=== PATIENT | female | born 1995 | race Caucasian/White ===

== ENCOUNTER 2016-10-18 14:53 | Emergency (ER) | payer OTHER ==
[2016-10-18 14:58] VITALS: BP 153/63; PULSE 96; TEMP 97.9; BMI 28.7
--- NOTE | 2016-10-18 15:06 | PDOC ---
History of Present Illness - General Chief Complaint: Allergic Reaction Stated Complaint: SKIN RASH Time Seen by Provider: 10/18/16 15:05 History Source: Patient Exam Limitations: No Limitations - History of Present Illness Initial Comments: 10/18/16 15:33 CHIEF COMPLAINT: Rash 2 days HISTORY OF PRESENT ILLNESS: Pt.is a 20 year old female with no significant medical history here today complaining of worsening pruritic rash that started 2 days ago under her b/l breast and medial forearm, to her back, posterior calved, anterior and posterior neck and buttocks. Patient reports that she started to take Flagyl 500 mg twice a day and Zithromycin 1 gm 3 days ago. She has taken both medications before without any reaction. Patient denies any difficulty swallowing or breathing. Patient does not have any facial swelling noticeable. Pt. denies any new cosmetics, lotions, clothing or body piercing or tattoes. 10/18/16 15:54 10/18/16 23:06 Timing/Duration: getting worse (last 2 days ) Severity: moderate Associated Symptoms: reports: rash (medial forearm & thighs, posterior calves, under b/l breasts, back, b/l buttock, neck anterior/posterior non confluent pruritic rash ) Past History - Past Medical History Allergies/Adverse Reactions: Allergies Allergy/AdvReac Type Severity Reaction Status Date / Time No Known Allergies Allergy Verified 10/18/16 14:55 Home Medications: Ambulatory Orders Azithromycin 500 mg PO ASDIR 10/18/16 Metronidazole 500 mg PO ASDIR 10/18/16 Asthma: No Cancer: No Cardiac Disorders: No Diabetes: No HTN: No Seizures: No Thyroid Disease: No Other medical history: none - Reproductive History (#): 2 Para: 1 Therapeutic (s) & number: No Spontaneous : 0 - Immunization History Immunization Up to Date: Yes - Psycho/Social/Smoking Cessation Hx Anxiety: Yes Suicidal Ideation: No Smoking Status: Yes Smoking History: Current every day smoker Have you smoked in the past 12 months: Yes Number of Cigarettes Smoked Daily: 5 If you are a former smoker, when did you quit?: 11/05/11 Information on smoking cessation initiated: Yes 'Breaking Loose' booklet given: 10/18/16 Hx Alcohol Use: No Drug/Substance Use Hx: No Substance Use Type: None Hx Substance Use Treatment: No Review of Systems - Review of Systems Able to Perform ROS?: Yes Constitutional: No: Symptoms Reported HEENTM: No: Symptoms Reported Respiratory: No: Symptoms reported Cardiac (ROS): No: Symptoms Reported ABD/GI: No: Symptoms Reported : No: Symptoms Reported Musculoskeletal: No: Symptoms Reported Integumentary: Yes: Pruritus (medial forearm, thighs, posterior calves, under b/ l breasts, back, buttock anterior /posteriro rash non confluent), Rash Neurological: No: Symptoms reported *Physical Exam - Vital Signs Last Vital Signs Temp Pulse Resp BP Pulse Ox 97.9 F 96 H 18 153/63 100 10/18/16 14:55 10/18/16 14:55 10/18/16 14:55 10/18/16 14:55 10/18/16 14:55 - Physical Exam General Appearance: Yes: Appropriately Dressed HEENT: positive: Pharyngeal Erythema, Tonsillar Erythema (with no uvular deviation ). negative: Tonsillar Exudate Neck: positive: Lymphadenopathy (L). negative: Lymphadenopathy (R) Respiratory/Chest: positive: Lungs Clear, Normal Breath Sounds. negative: Chest Tender, Respiratory Distress Cardiovascular: positive: Regular Rhythm, Regular Rate, S1, S2 Integumentary: positive: Rash (macular, medial forearms/proximal thighs, under b /l breasts, back, b/l buttock, anterior/posterior neck non confluent, few are minimally raised) Neurologic: positive: Alert, Normal Response, Responsive Medical Decision Making - Medical Decision Making 10/18/16 15:39 Pt.is a 20 year old female with no significant medical history here today complaining of worsening pruritic rash that started 2 days ago on her b/l breast and medial forearm, to her back, posterior calved, anterior and posterior neck and buttocks. Patient reports that she started to take Flagyl 500 mg twice a day and Zithromycin 1 gm 3 days ago. She has taken both medications before without any reaction. Patient denies any difficulty swallowing or breathing. Patient does not have any facial swelling noticeable. Pruritic rash pharyngitis PLAN: throat C & S rapid negative pt.advised to stop flagyl take benadryl as directed for itchiness follow up with rim technician 10/18/16 15:56 10/18/16 16:02 *DC/Admit/Observation/Transfer Diagnosis at time of Disposition: Rash, skin - Discharge Dispostion Disposition: HOME Condition at time of disposition: Stable - Patient Instructions Additional Instructions: Stop Metronidazole and follow up with [facility] Follow up with rim technician Dr. Segura [phone] Return to emergency room if any difficulty breathing or swallowing or any facial swelling or any new symptoms Take Benadryl as needed as directed by print journalist for itchiness Patient voiced understanding of discharge instructions and all questions were answered - Post Discharge Activity Work/School Note: Back to Work
== END 2016-10-18 16:06 | disposition home or self-care (01) ==
LOC: JERFT 14:53
DX: R21 Rash and other nonspecific skin eruption (principal)
CPT/HCPCS: 87070; 87430; 99281-25

== ENCOUNTER 2016-10-21 04:37 | Emergency (ER) | payer OTHER ==
--- NOTE | 2016-10-21 05:29 | PDOC ---
History of Present Illness - General History Source: Patient Exam Limitations: No Limitations - History of Present Illness Initial Comments: 10/21/16 05:57 The patient is a 20 year old female with no significant past medical history who presents to the ED with a progressively worsening rash for 4 days. The patient was seen in the ED 2 days ago and discharged with benadryl. She reports the rash is throughout her upper and lower extremities, back, and abdomen. She states the rash has now developed to her breast and her rash is now itchy. Patient reports the rash is so itchy, it hurts. Denies recent contact with plants. Denies fevers or chills. Denies chest pain or shortness of breath. Denies nausea , vomiting, or diarrhea. Denies any other symptoms. Social hx: The patient lives at home with her daughter and 2 dogs. She reports she is the only person at home with a rash. <Curt Rodriguez - Last Filed: 10/21/16 05:57> <Estela Enciso - Last Filed: 10/24/16 22:40> - General Stated Complaint: RASH Time Seen by Provider: 10/21/16 04:46 Past History <Curt Rodriguez - Last Filed: 10/21/16 05:57> - Past Medical History Asthma: No Cancer: No Cardiac Disorders: No Diabetes: No HTN: No Seizures: No Thyroid Disease: No - Reproductive History (#): 2 Para: 1 Therapeutic (s) & number: No Spontaneous : 0 - Immunization History Immunization Up to Date: Yes - Psycho/Social/Smoking Cessation Hx Anxiety: Yes Suicidal Ideation: No Smoking Status: Yes Smoking History: Current every day smoker Have you smoked in the past 12 months: Yes Number of Cigarettes Smoked Daily: 5 If you are a former smoker, when did you quit?: 11/05/11 'Breaking Loose' booklet given: 10/18/16 Hx Alcohol Use: No Drug/Substance Use Hx: No Substance Use Type: None Hx Substance Use Treatment: No <Estela Enciso - Last Filed: 10/24/16 22:40> - Past Medical History Allergies/Adverse Reactions: Allergies Allergy/AdvReac Type Severity Reaction Status Date / Time No Known Allergies Allergy Verified 10/21/16 05:59 Home Medications: Ambulatory Orders Azithromycin 500 mg PO ASDIR 10/18/16 Metronidazole 500 mg PO ASDIR 10/18/16 Calamine 8% Topical Lotion - 1 applic TP BID #1 bottle 10/21/16 Dicloxacillin Sodium 250 mg PO BID #14 capsule 10/21/16 Permethrin 5% Topical Cream [Elimite -] 1 applic TP ONCE #1 bottle 10/21/16 Review of Systems - Review of Systems Able to Perform ROS?: Yes Comments:: 10/21/16 05:57 CONSTITUTIONAL: Absent: fever, chills, diaphoresis, generalized weakness, malaise, loss of appetite HEENT: Absent: rhinorrhea, nasal congestion, throat pain, throat swelling, difficulty swallowing, mouth swelling, ear pain, eye pain, visual Changes CARDIOVASCULAR: Absent: chest pain, syncope, palpitations, irregular heart rate, lightheadedness , peripheral edema RESPIRATORY: Absent: cough, shortness of breath, dyspnea with exertion, orthopnea, wheezing, stridor, hemoptysis GASTROINTESTINAL: Absent: abdominal pain, abdominal distension, nausea, vomiting, diarrhea, constipation, melena, hematochezia GENITOURINARY: Absent: dysuria, frequency, urgency, hesitancy, hematuria, flank pain, genital pain MUSCULOSKELETAL: Absent: myalgia, arthralgia, joint swelling SKIN: + rash, itching Absent: pallor HEMATOLOGIC/IMMUNOLOGIC: Absent: easy bleeding, easy bruising, lymphadenopathy, frequent infections ENDOCRINE: Absent: unexplained weight gain, unexplained weight loss, heat intolerance, cold intolerance NEUROLOGIC: Absent: headache, focal weakness or paresthesias, dizziness, unsteady gait, seizure, mental status changes, bladder or bowel incontinence PSYCHIATRIC: Absent: anxiety, depression, suicidal or homicidal ideation, hallucinations. All Other Systems: Reviewed and Negative <Curt Rodriguez - Last Filed: 10/21/16 05:57> *Physical Exam - Physical Exam Comments: 10/21/16 05:57 GENERAL: Well developed, well nourished. Awake and alert. No acute distress. HEENT: Normocephalic, atraumatic. PERRLA, EOMI. No conjunctival pallor. Sclera are non- icteric. Moist mucous membranes. Oropharynx is clear. NECK: Supple. Full ROM. No JVD. Carotid pulses 2+ and symmetric, without bruits. No thyromegaly. NCo lymphadenopathy. CARDIOVASCULAR: Regular rate and rhythm. No murmurs, rubs, or gallops. Distal pulses are 2+ and symmetric. PULMONARY: No evidence of respiratory distress. Lungs clear to auscultation bilaterally. No wheezing, rales or rhonchi. ABDOMINAL: Soft. Non-tender. Non-distended. No rebound or guarding. No organomegaly. Normoactive bowel sounds. MUSCULOSKELETAL Normal range of motion at all joints. No bony deformities or tenderness. No CVA tenderness. EXTREMITIES: No cyanosis. No clubbing. No edema. No calf tenderness. SKIN: + macular rash with pinpoint papules throughout extremities, abdomen, chest , back. Warm and dry. Normal capillary refill. No jaundice. NEUROLOGICAL: Alert, awake, appropriate. Cranial nerves 2-12 intact. No deficits to light touch and temperature in face, upper extremities and lower extremities. No motor deficits in the in face, upper extremities and lower extremities. Normoreflexic in the upper and lower extremities. Normal speech. Toes are down- going bilaterally. Gait is normal without ataxia. PSYCHIATRIC: Cooperative. Good eye contact. Appropriate mood and affect. <Curt Rodriguez - Last Filed: 10/21/16 05:57> Medical Decision Making - Medical Decision Making 10/24/16 22:38 Pt comes with a nonspecific itchy rash that is spreading on her trunk. There could be a bacterial component to it, so I will teat with diclox; also there bould be a body flea or insect/lice component, as she lives in close quarters with her 2 dogs. I will gve permethrin. Calamine ordered for relief of itching. Pt has appointment with dermatology in the AM <Estela Enciso - Last Filed: 10/24/16 22:40> *DC/Admit/Observation/Transfer - Attestations Scribe Attestion: 10/21/16 05:58 Documentation prepared by Curt Rodriguez, acting as bilingual medical assistant for Estela Enciso MD <Curt Rodriguez - Last Filed: 10/21/16 05:57> - Discharge Dispostion Admit: No <Estela Enciso - Last Filed: 10/24/16 22:40> Diagnosis at time of Disposition: Rash, skin, Pruritic rash - Discharge Dispostion Disposition: HOME Condition at time of disposition: Stable - Prescriptions Prescriptions: Calamine 8% Topical Lotion - 1 applic TP BID #1 bottle Dicloxacillin Sodium 250 mg PO BID #14 capsule Permethrin 5% Topical Cream [Elimite -] 1 applic TP ONCE #1 bottle - Patient Instructions Printed Discharge Instructions: DI for Rash
[2016-10-21] MEDS ORDERED: CALAMINE 8% TOPICAL LOTION 177 ML BOTTLE TP ONE (05:57)
[2016-10-21 06:11] VITALS: BP 110/71; PULSE 74; TEMP 98.3; BMI 24.2
== END 2016-10-21 06:12 | disposition home or self-care (01) ==
LOC: JER 04:37
DX: R21 Rash and other nonspecific skin eruption (principal)
CPT/HCPCS: 99281-25

== ENCOUNTER 2016-12-11 01:48 | Emergency (ER) | payer OTHER ==
[2016-12-11 02:29] VITALS: BP 121/79; PULSE 80; TEMP 97.9; BMI 24.2
[2016-12-11] MEDS ORDERED: IBUPROFEN 600 MG TABLET (FP) PO STA (02:36)
--- NOTE | 2016-12-11 02:36 | PDOC ---
History of Present Illness - General History Source: Patient Exam Limitations: No Limitations - History of Present Illness Initial Comments: 12/11/16 02:56 The patient is a 21-year-old female, with no significant past medical history, who presents to the ED with one day of head and neck pain. The pt was at work putting dishes in section [employer] when a metal rack fell and hit the left-side of her neck, causing her to hit her head against a counter. Pt went to another hospital and left before she was seen because the wait was too long. She reports that she has been taking tylenol for pain. On exam, the patient reports experiencing dizziness. The patient denies having any other injuries or symptoms. Allergies: None <Evelia Og - Last Filed: 12/11/16 02:56> - General History Source: Patient <Eduardo Gold - Last Filed: 12/11/16 04:02> - General Chief Complaint: Injury Stated Complaint: FACE/NECK INJURY (WORK) Time Seen by Provider: 12/11/16 02:32 Past History <Evelia Og - Last Filed: 12/11/16 02:56> - Past Medical History Asthma: No Cancer: No Cardiac Disorders: No Diabetes: No HTN: No Seizures: No Thyroid Disease: No - Reproductive History (#): 2 Para: 1 Therapeutic (s) & number: No Spontaneous : 0 - Immunization History Immunization Up to Date: Yes - Psycho/Social/Smoking Cessation Hx Anxiety: Yes Suicidal Ideation: No Smoking Status: Yes Smoking History: Current every day smoker Have you smoked in the past 12 months: Yes Number of Cigarettes Smoked Daily: 5 If you are a former smoker, when did you quit?: 11/05/11 Information on smoking cessation initiated: No 'Breaking Loose' booklet given: 10/18/16 Hx Alcohol Use: No Drug/Substance Use Hx: No Substance Use Type: None Hx Substance Use Treatment: No <Eduardo Gold - Last Filed: 12/11/16 04:02> - Past Medical History Allergies/Adverse Reactions: Allergies Allergy/AdvReac Type Severity Reaction Status Date / Time No Known Allergies Allergy Verified 12/11/16 02:20 Home Medications: Ambulatory Orders Ibuprofen [Motrin] 600 mg PO TID #30 tablet 12/11/16 Methocarbamol [Robaxin -] 500 mg PO TID #30 tablet 12/11/16 Review of Systems - Review of Systems Able to Perform ROS?: Yes Comments:: 12/11/16 02:57 CONSTITUTIONAL: Absent: fever, chills, diaphoresis, generalized weakness, malaise, loss of appetite HEENT: Absent: rhinorrhea, nasal congestion, throat pain, throat swelling, difficulty swallowing, mouth swelling, ear pain, eye pain, visual Changes CARDIOVASCULAR: Absent: chest pain, syncope, palpitations, irregular heart rate, lightheadedness , peripheral edema RESPIRATORY: Absent: cough, shortness of breath, dyspnea with exertion, orthopnea, wheezing, stridor, hemoptysis GASTROINTESTINAL: Absent: abdominal pain, abdominal distension, nausea, vomiting, diarrhea, constipation, melena, hematochezia GENITOURINARY: Absent: dysuria, frequency, urgency, hesitancy, hematuria, flank pain, genital pain MUSCULOSKELETAL: Present: neck pain Absent: arthralgia, joint swelling SKIN: Absent: rash, itching, pallor HEMATOLOGIC/IMMUNOLOGIC: Absent: easy bleeding, easy bruising, lymphadenopathy, frequent infections ENDOCRINE: Absent: unexplained weight gain, unexplained weight loss, heat intolerance, cold intolerance NEUROLOGIC: Present: headache, dizziness Absent: focal weakness or paresthesias, unsteady gait, seizure, mental status changes, bladder or bowel incontinence PSYCHIATRIC: Absent: anxiety, depression, suicidal or homicidal ideation, hallucinations. <Evelia Og - Last Filed: 12/11/16 02:56> *Physical Exam - Vital Signs Last Vital Signs Temp Pulse Resp BP Pulse Ox 97.9 F 80 16 121/79 99 12/11/16 02:20 12/11/16 02:20 12/11/16 02:20 12/11/16 02:20 12/11/16 02:20 - Physical Exam Comments: 12/11/16 02:58 GENERAL: Well developed, well nourished. Awake and alert. No acute distress. HEENT: Normocephalic, atraumatic. PERRLA, EOMI. No conjunctival pallor. Sclera are non- icteric. Moist mucous membranes. Oropharynx is clear. No raccoon or battlesigns. No obvious ecchymosis. No hemotympanum. NECK: Supple. No JVD. Carotid pulses 2+ and symmetric, without bruits. No thyromegaly. No lymphadenopathy. CARDIOVASCULAR: Regular rate and rhythm. No murmurs, rubs, or gallops. Distal pulses are 2+ and symmetric. PULMONARY: No evidence of respiratory distress. Lungs clear to auscultation bilaterally. No wheezing, rales or rhonchi. ABDOMINAL: Soft. Non-tender. Non-distended. No rebound or guarding. No organomegaly. Normoactive bowel sounds. MUSCULOSKELETAL Normal range of motion at all joints. No bony deformities or tenderness. No CVA tenderness. EXTREMITIES: No cyanosis. No clubbing. No edema. No calf tenderness. SKIN: Warm and dry. Normal capillary refill. No rashes. No jaundice. NEUROLOGICAL: Alert, awake, appropriate. Cranial nerves 2-12 intact. PSYCHIATRIC: Cooperative. Good eye contact. Appropriate mood and affect. <Evelia Og - Last Filed: 12/11/16 02:56> - Vital Signs Last Vital Signs Temp Pulse Resp BP Pulse Ox 97.9 F 80 16 121/79 99 12/11/16 02:20 12/11/16 02:20 12/11/16 02:20 12/11/16 02:20 12/11/16 02:20 <Eduardo Gold - Last Filed: 12/11/16 04:02> ED Treatment Course - Medications Given in the ED: ED Medications Discontinued Medications Generic Name Dose Route Start Last Admin Trade Name Freq PRN Reason Stop Dose Admin Ibuprofen 600 mg 12/11/16 02:36 12/11/16 02:42 Motrin - PO 12/11/16 02:37 600 mg ONCE STA Administration <Evelia Og - Last Filed: 12/11/16 02:56> Medical Decision Making - Medical Decision Making 12/11/16 03:59 Dr. Gold: The scribe's documentation has been prepared under my direction and personally reviewed by me in its entirery. I confirm that the note above accurately reflects all work, treatment, procedures, and medical decision making performed by me. <Eduardo Gold - Last Filed: 12/11/16 04:02> *DC/Admit/Observation/Transfer - Attestations Scribe Attestion: 12/11/16 03:00 Documentation prepared by Evelia Og, acting as er medical technician for Eduardo Gold MD. <Evelia Og - Last Filed: 12/11/16 02:56> - Discharge Dispostion Admit: No <Eduardo Gold - Last Filed: 12/11/16 04:02> Diagnosis at time of Disposition: Closed head injury Qualifiers: Encounter type: initial encounter Qualified Code(s): S09.90XA - Unspecified injury of head, initial encounter - Discharge Dispostion Disposition: HOME Condition at time of disposition: Stable - Patient Instructions Printed Discharge Instructions: DI for Closed Head Injury - Post Discharge Activity Work/School Note: Back to Work
[2016-12-11] MEDS ORDERED: IBUPROFEN 600 MG TABLET (FP) PO ONE (02:41)
[2016-12-11] MEDS ORDERED: METHOCARBAMOL 500 MG TABLET PO ONE (04:05)
[2016-12-11] MEDS ORDERED: METHOCARBAMOL 500 MG TABLET ONE (04:07)
== END 2016-12-11 04:10 | disposition home or self-care (01) ==
LOC: JER 01:48
DX: S09.8XXA Other specified injuries of head, initial encounter (principal); W22.8XXA Striking against or struck by other objects, initial encounter; Y93.G1 Activity, food preparation and clean up; Y92.59 Other trade areas as the place of occurrence of the external cause; Y99.0 Civilian activity done for income or pay
CPT/HCPCS: 70450-TC; 72125-TC; 84703; 99282-25

== ENCOUNTER 2017-05-05 16:57 | Emergency (ER) | payer OTHER ==
[2017-05-05 17:03] VITALS: BMI 22.6
--- NOTE | 2017-05-05 17:05 | PDOC ---
Rapid Medical Evaluation Time Seen by Provider: 05/05/17 17:00 Medical Evaluation: Allergies Allergy/AdvReac Type Severity Reaction Status Date / Time No Known Allergies Allergy Verified 05/05/17 17:00 05/05/17 17:00 The patient presents with a chief complaint of: Nausea and vomiting for 3 weeks. Pt. states that she vomits after every time she eats. Last bowel movement yesterday. Has not seen a primary care doctor I have performed a brief in-person evaluation of this patient; Pertinent physical exam findings: LUQ tenderness, epigastric tenderness I have ordered the following: CBC, CMP, Lipase, UA, UC, Upreg The patient will proceed to the ED for further evaluation.
[2017-05-05 17:28] LABS: BASOPHIL 0.3 % (0-2.0); MCHC 33.5 g/dl (32.0-36.0); MEAN CELL VOLUME 86.6 fl (80-96); MEAN PLT VOLUME 8.4 fl (7.5-11.1); NEUTROPHILS 76.4 % (42.8-82.8); PLATELET COUNT 336 K/MM3 (134-434); RDW 13.3 % (11.6-15.6); WHITE BLOOD COUNT 15.5 K/mm3 (4.0-10.0)
[2017-05-05 17:33] LABS: URINE APPEARANCE CLOUDY; URINE BILIRUBIN NEGATIVE (NEGATIVE); URINE BLOOD NEGATIVE (NEGATIVE); URINE COLOR YELLOW; URINE GLUCOSE (UA) NEGATIVE (NEGATIVE); URINE KETONE NEGATIVE (NEGATIVE); URINE LEUK ESTERASE NEGATIVE (NEGATIVE); URINE NITRITE NEGATIVE (NEGATIVE); URINE PROTEIN NEGATIVE (NEGATIVE); URINE UROBILINOGEN NEGATIVE mg/dL (0.2-1.0)
[2017-05-05 17:53] LABS: ALBUMIN 4.2 g/dl (3.4-5.0); ALK PHOS 100 U/L (45-117); ANION GAP 6 (8-16); BILIRUBIN,TOTAL 0.3 mg/dL (0.2-1.0); CALCIUM 9.4 mg/dL (8.5-10.1); CO2 28 mmol/L (21-32); CREATININE 0.8 mg/dL (0.55-1.02); GLUCOSE,RANDOM 89 mg/dL (74-106); SGOT/AST 14 U/L (15-37); SGPT/ALT 21 U/L (12-78); TOT PROT 8.7 g/dl (6.4-8.2)
--- NOTE | 2017-05-05 19:10 | PDOC ---
History of Present Illness - General Chief Complaint: Pain, Acute Stated Complaint: NAUSEA/VOMITING Time Seen by Provider: 05/05/17 17:00 - History of Present Illness Initial Comments: 05/05/17 19:10 21 yo F with no significant pmh who presents with abdominal pain. Patient reports LUQ sharp, shooting, abdominal pain lasting for seconds then resolving. Pain radiates from LUQ to RLQ. Described as "electrical sensation." Also endorses 3 weeks of N/V, exacerbated with PO intake. No identifiable trigger. States that she is only able to drink water and smooothies. Last bowel movement today with no BRBPR. Denies fevers/chills, diarrhea, hematemesis, constipation, dysuria, hematuria, irregular vaginal bleeding/discharge, flank pain, chest pain , SOB. Endorses daily marijuanna use for the past 10 years. 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 Past History - Past Medical History Allergies/Adverse Reactions: Allergies Allergy/AdvReac Type Severity Reaction Status Date / Time No Known Allergies Allergy Verified 05/05/17 17:00 Home Medications: Ambulatory Orders Ibuprofen [Motrin] 600 mg PO TID #30 tablet 12/11/16 Methocarbamol [Robaxin -] 500 mg PO TID #30 tablet 12/11/16 Asthma: No Cancer: No Cardiac Disorders: No COPD: No Diabetes: No HTN: No Seizures: No Thyroid Disease: No - Reproductive History (#): 2 Para: 1 Therapeutic (s) & number: No Spontaneous : 0 - Immunization History Immunization Up to Date: Yes - Suicide/Smoking/Psychosocial Hx Smoking Status: Yes Smoking History: Never smoked Have you smoked in the past 12 months: Yes Number of Cigarettes Smoked Daily: 5 If you are a former smoker, when did you quit?: 11/05/11 Information on smoking cessation initiated: Yes 'Breaking Loose' booklet given: 05/05/17 Hx Alcohol Use: No Drug/Substance Use Hx: No Substance Use Type: None Hx Substance Use Treatment: No Review of Systems - Review of Systems Comments:: 05/05/17 19:09 GENERAL/CONSTITUTIONAL: No fever or chills. No weakness. HEAD, EYES, EARS, NOSE AND THROAT: No change in vision. No ear pain or discharge. No sore throat.- CARDIOVASCULAR: No chest pain or shortness of breath RESPIRATORY: No cough, wheezing, or hemoptysis. GASTROINTESTINAL: + abdominal pain, nausea, and vomiting. No diarrhea or constipation. GENITOURINARY: No dysuria, frequency, or change in urination. MUSCULOSKELETAL: No joint or muscle swelling or pain. No neck or back pain. SKIN: No rash NEUROLOGIC: No headache, vertigo, loss of consciousness, or change in strength/ sensation. ENDOCRINE: No increased thirst. No abnormal weight change HEMATOLOGIC/LYMPHATIC: No anemia, easy bleeding, or history of blood clots. ALLERGIC/IMMUNOLOGIC: No hives or skin allergy. = *Physical Exam - Vital Signs Last Vital Signs Temp Pulse Resp BP Pulse Ox 97.3 F L 98 H 18 131/86 100 05/05/17 17:01 05/05/17 17:01 05/05/17 17:01 05/05/17 17:01 05/05/17 17:01 - Physical Exam Comments: 05/05/17 19:09 GENERAL: Awake, alert, and fully oriented, in no acute distress HEAD: No signs of trauma, normocephalic, atraumatic EYES: PERRLA, EOMI, sclera anicteric, conjunctiva clear ENT: Hearing grossly normal, nares patent, oropharynx clear without exudates. Moist mucosa NECK: Normal ROM, supple, no lymphadenopathy, JVD, or masses LUNGS: No distress, speaks full sentences, clear to auscultation bilaterally HEART: Regular rate and rhythm, normal S1 and S2, no murmurs, rubs or gallops, peripheral pulses normal and equal bilaterally. ABDOMEN: Soft, LUQ > LLQ ttp. Nontender, normoactive bowel sounds. No guarding , no rebound. No masses. Neg CVA ttp. Neg suprapubic ttp. Neg vang sign, or mcburney ttp. EXTREMITIES : Normal inspection, Normal range of motion, no edema. No clubbing or cyanosis. SKIN: Warm, Dry, normal turgor, no rashes or lesions noted. ED Treatment Course - LABORATORY CBC & Chemistry Diagram: 05/05/17 17:20 05/05/17 17:20 - ADDITIONAL ORDERS Additional order review: Laboratory Results 05/05/17 05/05/17 05/05/17 17:20 17:20 17:20 Sodium 141 Potassium 4.0 Chloride 107 Carbon Dioxide 28 Anion Gap 6 L BUN 15 Creatinine 0.8 D Creat Clearance w eGFR > 60 Random Glucose 89 Calcium 9.4 Total Bilirubin 0.3 D AST 14 L ALT 21 Alkaline Phosphatase 100 D Total Protein 8.7 H Albumin 4.2 Lipase 125 Urine Color Yellow Urine Appearance Cloudy Urine pH 5.0 Ur Specific [place] 1.026 Urine Protein Negative Urine Glucose (UA) Negative Urine Ketones Negative Urine Blood Negative Urine Nitrite Negative Urine Bilirubin Negative Urine Urobilinogen Negative Urine HCG, Qual Negative 05/05/17 17:20 RBC 5.08 MCV 86.6 MCHC 33.5 RDW 13.3 MPV 8.4 Neutrophils % 76.4 Lymphocytes % 15.0 D Monocytes % 7.3 Eosinophils % 1.0 D Basophils % 0.3 Medical Decision Making - Medical Decision Making 05/05/17 20:40 21 yo F with no significant pmh who presents w/ LUQ sharp, shooting, intermittent abdominal pain and 3 weeks of non biliary, non bloody, emesis, exacerbated with PO intake. Last bowel movement today with no BRBPR. Denies fevers/chills, chest pain, diarrhea, constipation, dysuria, hematuria, dysmennorhea, vaginal discharge, flank pain, chest pain, SOB. Endorses daily marijuanna use for the past 10 years. 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 Physical exam with LUQ/LLQ ttp. Patient arrived from [facility] with unremarkable laboratory evaluation. Pain not consistent with gallbladder vs pancreatic etiology. Possible THC induced cyclical vomitting vs. viral gastritis. ED Course: 05/05/17 20:44 CMP: Unremarkable Lipase: Neg WBC: 15.5 BHCG: neg 05/05/17 20:45 UA: Neg CT AP IV CON: Slighlt distended bowel loops suggesting diarrheal illness. 05/05/17 20:48 Zofran, Toradol, NS Patient stable for discharge and advised to f/u in outpt. clinic with return precautions. *DC/Admit/Observation/Transfer Diagnosis at time of Disposition: Abdominal pain with vomiting - Discharge Dispostion Disposition: HOME Condition at time of disposition: Stable Admit: No - Referrals - Patient Instructions Printed Discharge Instructions: DI for Nausea -- Adult Additional Instructions: Please return to the emergency department with any new or worsening symptoms or concerns. Please follow up with outpatient GI clinic ) - Post Discharge Activity - Attestations Physician Attestion: 05/05/17 21:39 I attest to the information provided in this note.
[2017-05-05] MEDS ORDERED: ONDANSETRON 4 MG TABLET PO ONE (19:31)
[2017-05-05] MEDS ORDERED: ONDANSETRON 4 MG/2 ML VIAL ONE (19:54)
[2017-05-05] MEDS ORDERED: ONDANSETRON 4 MG/2 ML VIAL IVPB ONE (19:54)
--- NOTE | 2017-05-05 19:55 | PDOC ---
Attending Attestation - HPI HPI: 05/05/17 21:48 21 F with no significant past medical history, who presents to the emergency department with abdominal pain, nausea, and vomiting for 3 weeks. She states she has had abdominal problems for approximately 3 years. She reports she vomits after eating, especially solid foods. She states it feels like her abdomen is being tasered. Pt denies CP, SOB, RODRIGUEZ, and dizziness. Pt denies F/C, throat pain, diarrhea. Pt denies dysuria, frequency, urgency and hematuria. - Physicial Exam PE: 05/05/17 21:48 GENERAL: Awake, alert, and fully oriented, in no acute distress HEAD: No signs of trauma EYES: PERRLA, EOMI, sclera anicteric, conjunctiva clear ENT: Auricles normal inspection, hearing grossly normal, nares patent, oropharynx clear without exudates. Moist mucosa NECK: Normal ROM, supple, no lymphadenopathy, JVD, or masses LUNGS: Breath sounds equal, clear to auscultation bilaterally. No wheezes, and no crackles HEART: Regular rate and rhythm, normal S1 and S2, no murmurs, rubs or gallops ABDOMEN: (+) Ttp RUQ and LLQ. Soft, normoactive bowel sounds. No guarding, no rebound. No masses EXTREMITIES: Normal range of motion, no edema. No clubbing or cyanosis. No cords, erythema, or tenderness NEUROLOGICAL: Cranial nerves II through XII grossly intact. Normal speech, normal gait SKIN: Warm, Dry, normal turgor, no rashes or lesions noted. <Ni Triplett - Last Filed: 05/05/17 21:48> - Resident Resident Name: Carlos Enrique Babcock - ED Attending Attestation I have performed the following: I have examined & evaluated the patient, The case was reviewed & discussed with the resident, I agree w/resident's findings & plan, Exceptions are as noted - Medical Decision Making Pt with abdominal pain intermittently for years, presenting with similar symptoms. She has been evaluated in ED in the past, stating it is hard to get GI followup on account of her medicaid. Will obtain CT in ED as she has tenderness to RLQ. If neg, will refer to [facility] system. <Selena Santos - Last Filed: 05/06/17 00:08>
[2017-05-05] MEDS ORDERED: SODIUM CHLORIDE 1,000 ML IV STA (20:06)
[2017-05-05 21:13] LABS: URINE LEUK ESTERASE NEGATIVE (NEGATIVE)
[2017-05-05 22:04] VITALS: BP 134/70; PULSE 84; TEMP 98.4
== END 2017-05-05 22:04 | disposition home or self-care (01) ==
LOC: JER 16:57
PROC: 3E033GC Introduction of Other Therapeutic Substance into Peripheral Vein, Percutaneous Approach (ICD-10-PCS; principal; 2017-05-05)
PROC: 3E0337Z Introduction of Electrolytic and Water Balance Substance into Peripheral Vein, Percutaneous Approach (ICD-10-PCS; 2017-05-05)
DX: R10.9 Unspecified abdominal pain (principal); R11.2 Nausea with vomiting, unspecified; Z87.891 Personal history of nicotine dependence
CPT/HCPCS: 36415; 74177-TC; 80053; 81003; 83690; 84703; 85025; 87086; 99282-25

== ENCOUNTER 2017-06-21 02:19 | Emergency (ER) | payer OTHER ==
[2017-06-21 03:29] VITALS: BP 125/79; PULSE 65; TEMP 98.1; BMI 27.9
--- NOTE | 2017-06-21 03:32 | PDOC ---
History of Present Illness - General Chief Complaint: Chronic pain Stated Complaint: KNEE PAIN Time Seen by Provider: 06/21/17 03:01 Past History - Past Medical History Allergies/Adverse Reactions: Allergies Allergy/AdvReac Type Severity Reaction Status Date / Time No Known Allergies Allergy Verified 06/21/17 03:05 Home Medications: Ambulatory Orders Ibuprofen [Motrin] 600 mg PO TID #30 tablet 12/11/16 Methocarbamol [Robaxin -] 500 mg PO TID #30 tablet 12/11/16 Sulfamethoxazole/Trimethoprim [Bactrim Ds -] 1 tab PO BID #14 tablet 06/21/17 Asthma: No Cancer: No Cardiac Disorders: No COPD: No Diabetes: No HTN: No Seizures: No Thyroid Disease: No - Reproductive History (#): 2 Para: 1 Therapeutic (s) & number: No Spontaneous : 0 - Immunization History Immunization Up to Date: Yes - Suicide/Smoking/Psychosocial Hx Smoking Status: Yes Smoking History: Former smoker Have you smoked in the past 12 months: No Number of Cigarettes Smoked Daily: 5 If you are a former smoker, when did you quit?: 11/05/11 Information on smoking cessation initiated: No 'Breaking Loose' booklet given: 05/05/17 Hx Alcohol Use: Yes Drug/Substance Use Hx: No Substance Use Type: None Hx Substance Use Treatment: No *Physical Exam - Vital Signs Last Vital Signs Temp Pulse Resp BP Pulse Ox 98.1 F 65 18 125/79 99 06/21/17 03:04 06/21/17 03:04 06/21/17 03:04 06/21/17 03:04 06/21/17 03:04 *DC/Admit/Observation/Transfer Diagnosis at time of Disposition: Bilateral knee effusions Cellulitis of lower extremity Qualifiers: Laterality: unspecified laterality Qualified Code(s): L03.119 - Cellulitis of unspecified part of limb - Discharge Dispostion Disposition: HOME Condition at time of disposition: Good Admit: No - Referrals Referrals: Earl Fu MD [Staff Physician] - - Patient Instructions Printed Discharge Instructions: DI for Knee Effusion, DI for Cellulitis -- Adult Additional Instructions: You have bilateral knee effusions as seen on x-ray. This is fluid surrounding the knee. It can be painful. Please wear Pedro wraps to help reduce the swelling. You may take Tylenol 650 mg every 4 hours as needed for pain. Elevate the legs 1 -year-old resting. He may apply heat to the area to help reduce the swelling as well. You were given a referral for orthopedics. Follow-up this week. You also have cellulitis of her lower leg due to shaving. Please take the medication as prescribed. Finish all medication even if you feel better. Throat without the razor you're using. You may use the mupirocin you have at home to help your symptoms. Return to the emergency department if you have numbness and tingling down her legs, worsening of your rash, or any changes in your symptoms. - Post Discharge Activity Forms/Work/School Notes: Back to Work
[2017-06-21] MEDS ORDERED: KETOROLAC TROMETHAMINE 60 MG/2 ML VIAL IM ONE (03:33)
[2017-06-21] MEDS ORDERED: KETOROLAC TROMETHAMINE 60 MG/2 ML VIAL ONE (04:48)
== END 2017-06-21 07:00 | disposition home or self-care (01) ==
LOC: JER 02:19
PROC: 3E0233Z Introduction of Anti-inflammatory into Muscle, Percutaneous Approach (ICD-10-PCS; principal; 2017-06-21)
DX: M25.462 Effusion, left knee (principal); M25.461 Effusion, right knee; L03.116 Cellulitis of left lower limb; L03.115 Cellulitis of right lower limb
CPT/HCPCS: 73560-TC-LT; 73560-TC-RT; 96372; 99281-25

== ENCOUNTER 2017-08-24 23:19 | Emergency (ER) | payer OTHER ==
[2017-08-24 23:26] VITALS: BP 130/81; PULSE 72; TEMP 98.4; BMI 27.7
--- NOTE | 2017-08-25 00:34 | PDOC ---
History of Present Illness - General Chief Complaint: Pain, Acute Stated Complaint: FLUID IN KNEE Time Seen by Provider: 08/24/17 23:56 History Source: Patient Exam Limitations: No Limitations - History of Present Illness Initial Comments: 08/25/17 01:29 Patient is a 21-year-old female with history of chronic knee pain, ovarian cyst , here with complaint of right knee pain 7 years and is requesting it to be drained. Patient states that the pain has been worsening over the past 2 years. Has been seen in this ER for this same pain 2 months ago, x-rays done were negative. States she has been using a knee brace, taking Motrin and Tylenol, without any relief of symptoms. Today she was driving and had some numbness in that leg and so has presented here for evaluation. States that 2 months ago was referred to clinic however they referred her to orthopedics but was not seen because she had the wrong type of insurance. 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 PMD: 2 [facility]. PMHX: as above ALL: NKDA GENERAL/CONSTITUTIONAL: [No fever or chills. No weakness. No weight change.] HEAD, EYES, EARS, NOSE AND THROAT: [No change in vision. No ear pain or discharge. No sore throat.] CARDIOVASCULAR: [No chest pain or shortness of breath.] RESPIRATORY: [No cough, wheezing, or hemoptysis.] GASTROINTESTINAL: [No nausea, vomiting, diarrhea or constipation. No rectal bleeding.] GENITOURINARY: [No dysuria, frequency, or change in urination.] MUSCULOSKELETAL: (+) joint or muscle swelling or pain. No neck or back pain.] SKIN AND BREASTS: [No rash or easy bruising.] NEUROLOGIC: [No headache, vertigo, loss of consciousness, or loss of sensation.] PSYCHIATRIC: [No depression or anxiety.] ENDOCRINE: [No increased thirst. No abnormal weight change.] HEMATOLOGIC/LYMPHATIC: [No anemia, easy bleeding, or history of blood clots.] ALLERGIC/IMMUNOLOGIC: [No hives or skin allergy. No latex allergy.] GENERAL: [The patient is awake, alert, and fully oriented, in no acute distress. ] HEAD: [Normal with no signs of trauma.] EYES: [Pupils equal, round and reactive to light, extraocular movements intact, sclera anicteric, conjunctiva clear.] ENT: [Ears normal, nares patent, oropharynx clear without exudates. Moist mucous membranes.] NECK: [Normal range of motion, supple without lymphadenopathy, JVD, or masses.] LUNGS: [Breath sounds equal, clear to auscultation bilaterally. No wheezes, and no crackles.] HEART: [Regular rate and rhythm, normal S1 and S2 without murmur, rub.] ABDOMEN: [Soft, nontender, normoactive bowel sounds. No guarding, no rebound. No masses.] EXTREMITIES: Decreased range of motion right knee, tenderness over the medial aspect of the knee, no effusion/edema. No clubbing or cyanosis. No cords, erythema, or tenderness.] NEUROLOGICAL: [Cranial nerves II through XII grossly intact. Normal speech, normal gait.] PSYCH: [Normal mood, normal affect.] SKIN: [Warm, Dry, normal turgor, no rashes or lesions noted.] Past History - Past Medical History Allergies/Adverse Reactions: Allergies Allergy/AdvReac Type Severity Reaction Status Date / Time No Known Allergies Allergy Verified 08/24/17 23:35 Home Medications: Ambulatory Orders NK [No Known Home Medication] 08/24/17 Asthma: No Cancer: No Cardiac Disorders: No COPD: No Diabetes: No HTN: No Seizures: No Thyroid Disease: No - Reproductive History (#): 2 Para: 1 Therapeutic (s) & number: No Spontaneous : 0 - Immunization History Immunization Up to Date: Yes - Suicide/Smoking/Psychosocial Hx Smoking Status: Yes Smoking History: Former smoker Have you smoked in the past 12 months: Yes Number of Cigarettes Smoked Daily: 0 If you are a former smoker, when did you quit?: 2018 Information on smoking cessation initiated: No 'Breaking Loose' booklet given: 05/05/17 Hx Alcohol Use: Yes Drug/Substance Use Hx: No Substance Use Type: None Hx Substance Use Treatment: No *Physical Exam - Vital Signs Last Vital Signs Temp Pulse Resp BP Pulse Ox 98.4 F 72 18 130/81 100 08/24/17 23:22 08/24/17 23:22 08/24/17 23:22 08/24/17 23:22 08/24/17 23:22 Medical Decision Making - Medical Decision Making 08/25/17 00:31 Patient is a 21-year-old female with history of chronic knee pain, ovarian cyst , here with complaint of right knee pain 7 years and is requesting it to be drained. Patient educated about exercises that will help her knee, inst to continue tylenol and motrin. I discussed the physical exam findings, ancillary test results and final diagnoses with the patient. I answered all of the patient's questions. The patient was satisfied with the care received and felt comfortable with the discharge plan and treatment plan. The Patient agrees to follow up with the primary care physician within 24-72 hours. 08/25/17 01:36 *DC/Admit/Observation/Transfer Diagnosis at time of Disposition: Knee pain, chronic Qualifiers: Laterality: right Qualified Code(s): M25.561 - Pain in right knee - Discharge Dispostion Disposition: HOME Condition at time of disposition: Stable - Referrals Referrals: Emery Yancey MD [Staff Physician] - - Patient Instructions Printed Discharge Instructions: DI for Knee Pain Additional Instructions: Your Discharge Instructions: You must call primary care physician within 24 hours to arrange follow-up. Return to the Emergency Department with any new, persistent or worsening symptoms, for fever, chills, SOB, dizziness or any other concerning changes that may occur. - Post Discharge Activity
== END 2017-08-25 01:16 | disposition home or self-care (01) ==
LOC: JER 23:19
DX: M25.561 Pain in right knee (principal); G89.29 Other chronic pain
CPT/HCPCS: 99283-25

== ENCOUNTER 2018-04-21 22:17 | Emergency (ER) | payer OTHER ==
[2018-04-21 22:32] VITALS: BP 135/85; PULSE 87; TEMP 98; BMI 29.0
[2018-04-21] MEDS ORDERED: LIDOCAINE HCL 2% JELLY (5 ML/TUBE) ONE (23:35)
[2018-04-21] MEDS ORDERED: LIDOCAINE HCL 2% JELLY 10 ML CARTRIDGE ONE ×2 (23:37→23:44)
--- NOTE | 2018-04-22 00:27 | PDOC ---
History of Present Illness - General Chief Complaint: Foreign Body (FB) Stated Complaint: FOREIGN OBJECT Time Seen by Provider: 04/21/18 23:18 History Source: Patient - History of Present Illness Initial Comments: 04/22/18 00:09 22 year old female with left earring fell 8 years ago has been to multiple ENT unable to retrieve the back of earring c/o hard of hearing denies fever/ chills, pain Past History - Past Medical History Allergies/Adverse Reactions: Allergies Allergy/AdvReac Type Severity Reaction Status Date / Time No Known Allergies Allergy Verified 04/21/18 22:26 Home Medications: Ambulatory Orders Ofloxacin Otic [Floxin Otic -] 10 drop OT BID #1 bottle 04/22/18 Asthma: No Cancer: No Cardiac Disorders: No COPD: No Diabetes: No HTN: No Seizures: No Thyroid Disease: No - Reproductive History (#): 2 Para: 1 Therapeutic (s) & number: No Spontaneous : 0 - Immunization History Immunization Up to Date: Yes - Suicide/Smoking/Psychosocial Hx Smoking Status: Yes Smoking History: Never smoked Have you smoked in the past 12 months: No Number of Cigarettes Smoked Daily: 0 If you are a former smoker, when did you quit?: 2018 Information on smoking cessation initiated: No 'Breaking Loose' booklet given: 05/05/17 Hx Alcohol Use: No Drug/Substance Use Hx: No Substance Use Type: None Hx Substance Use Treatment: No *Physical Exam - Vital Signs Last Vital Signs Temp Pulse Resp BP Pulse Ox 98.0 F 87 16 135/85 100 04/21/18 22:24 04/21/18 22:24 04/21/18 22:24 04/21/18 22:24 04/21/18 22:24 - Physical Exam General Appearance: Yes: Appropriately Dressed HEENT: positive: Other (left TM unable to visualize TM, silver metal earring imbedded with cerumen to left ear). negative: EOMI, JAS, Normal ENT Inspection , Normal Voice, Symmetrical, TMs Normal, Pharynx Normal, Pale Conjunctivae, Photophobia, Scleral Icterus (R), Scleral Icterus (L), Muffled/Hoarse voice, Pharyngeal Erythema, Tonsillar Exudate, Tonsillar Erythema, Nasal Congestion, Rhinorrhea, Sinus Tenderness, Orbits, Hearing Decreased, Hearing Grossly Normal , TM Bulging, TM Dull, TM Erythema, Lesions, Gibson, Excessive drooling, Thrush Moderate Sedation - Procedure Monitoring Vital Signs: Procedure Monitoring Vital Signs Temperature 98.0 F 04/21/18 22:24 Pulse Rate 87 04/21/18 22:24 Respiratory Rate 16 04/21/18 22:24 Blood Pressure 135/85 04/21/18 22:24 O2 Sat by Pulse Oximetry (%) 100 04/21/18 22:24 Procedures - Additional Procedures Progress: 04/22/18 00:31 left ear foreign body removal. lidocaine jelly instilled first. minimal bleeding. TM intact Medical Decision Making - Medical Decision Making foreign body removal from ear P: see procedure note will empirically give ofloxacin due to trauma to the canal. tm intact post procedure *DC/Admit/Observation/Transfer Diagnosis at time of Disposition: Foreign body in ear Qualifiers: Encounter type: initial encounter Laterality: left Qualified Code(s): T16.2XXA - Foreign body in left ear, initial encounter - Discharge Dispostion Disposition: HOME - Prescriptions Prescriptions: Ofloxacin Otic [Floxin Otic -] 10 drop OT BID #1 bottle - Referrals Referrals: Beto Milton MD [Staff Physician] - - Patient Instructions Printed Discharge Instructions: DI for Removal of Foreign Body From Ear Additional Instructions: follow up with ENT use ear drops as prescribed. - Post Discharge Activity Forms/Work/School Notes: Back to Work
== END 2018-04-22 01:04 | disposition home or self-care (01) ==
LOC: JER 22:17
PROC: 09C68ZZ Extirpation of Matter from Left Middle Ear, Via Natural or Artificial Opening Endoscopic (ICD-10-PCS; principal; 2018-04-21)
DX: T16.2XXA Foreign body in left ear, initial encounter (principal); X58.XXXA Exposure to other specified factors, initial encounter; Y93.89 Activity, other specified; Y92.89 Other specified places as the place of occurrence of the external cause; Y99.8 Other external cause status
CPT/HCPCS: 69209-50; 99281-25

== ENCOUNTER 2018-08-22 02:54 | Emergency (ER) | payer OTHER ==
[2018-08-22 03:16] VITALS: BP 125/88; PULSE 88; TEMP 97.6; BMI 29.8
--- NOTE | 2018-08-22 03:17 | PDOC ---
History of Present Illness - General Chief Complaint: Pain, Acute Stated Complaint: KNEE Time Seen by Provider: 08/22/18 03:16 - History of Present Illness Initial Comments: 08/22/18 03:16 Ms. Wynn is a 22 yo female w/ pmh of GERD and chronic knee problems with prior "tear" who presents for evaluation of R knee pain. Patient reports she hit knee into a pew at [employer] and has had significant pain at site since. Patient also reports she has had 2 year history of intermittent R sided chest pain which she believes may be 2/2 her GERD. No other complaints at this time. The patient denies shortness of breath, headache and dizziness. Denies fever, chills, nausea, vomit, diarrhea and constipation. Denies dysuria, frequency, urgency and hematuria. Past History - Past Medical History Allergies/Adverse Reactions: Allergies Allergy/AdvReac Type Severity Reaction Status Date / Time No Known Allergies Allergy Verified 08/22/18 03:15 Home Medications: Ambulatory Orders NK [No Known Home Medication] 08/22/18 Asthma: No Cancer: No Cardiac Disorders: No COPD: No Diabetes: No HTN: No Seizures: No Thyroid Disease: No - Reproductive History (#): 2 Para: 1 Therapeutic (s) & number: No Spontaneous : 0 - Immunization History Immunization Up to Date: Yes - Suicide/Smoking/Psychosocial Hx Smoking Status: Yes Smoking History: Never smoked Have you smoked in the past 12 months: No Number of Cigarettes Smoked Daily: 0 If you are a former smoker, when did you quit?: 2018 Information on smoking cessation initiated: No 'Breaking Loose' booklet given: 05/05/17 Hx Alcohol Use: No Drug/Substance Use Hx: No Substance Use Type: None Hx Substance Use Treatment: No Review of Systems - Review of Systems Comments:: 08/22/18 03:16 GENERAL/CONSTITUTIONAL: No fever or chills. No weakness. HEAD, EYES, EARS, NOSE AND THROAT: No change in vision. No ear pain or discharge. No sore throat. CARDIOVASCULAR: +Chest symptoms as described. No shortness of breath RESPIRATORY: No cough, wheezing, or hemoptysis. GASTROINTESTINAL: No nausea, vomiting, diarrhea or constipation. GENITOURINARY: No dysuria, frequency, or change in urination. MUSCULOSKELETAL: +R knee pain as described. SKIN: No rash NEUROLOGIC: No headache, vertigo, loss of consciousness, or change in strength/ sensation. ENDOCRINE: No increased thirst. No abnormal weight change HEMATOLOGIC/LYMPHATIC: No anemia, easy bleeding, or history of blood clots. ALLERGIC/IMMUNOLOGIC: No hives or skin allergy. *Physical Exam - Vital Signs Last Vital Signs Temp Pulse Resp BP Pulse Ox 97.6 F 88 20 125/88 99 08/22/18 03:15 08/22/18 03:15 08/22/18 03:15 08/22/18 03:15 08/22/18 03:15 - Physical Exam Comments: 08/22/18 03:16 GENERAL: Awake, alert, and fully oriented, in no acute distress HEAD: No signs of trauma, normocephalic, atraumatic EYES: PERRLA, EOMI, sclera anicteric, conjunctiva clear ENT: Auricles normal inspection, hearing grossly normal, nares patent, oropharynx clear without exudates. Moist mucosa NECK: Normal ROM, supple, no lymphadenopathy, JVD, or masses LUNGS: No distress, speaks full sentences, clear to auscultation bilaterally HEART: Regular rate and rhythm, normal S1 and S2, no murmurs, rubs or gallops, peripheral pulses normal and equal bilaterally. ABDOMEN: Soft, nontender, normoactive bowel sounds. No guarding, no rebound. No masses EXTREMITIES: +R lateral knee point TTP at IT band insertion site. Also pain w/ bending of knee at site, however normal inspection, normal range of motion, no edema. No clubbing or cyanosis. NEUROLOGICAL: Cranial nerves II through XII grossly intact. Normal speech, normal gait, no focal sensorimotor deficits SKIN: Warm, Dry, normal turgor, no rashes or lesions noted. Medical Decision Making - Medical Decision Making 08/22/18 03:35 Ms. Wynn is a 22 yo female w/ pmh as described who presents for evaluation of symptoms concerning for MSK injury. Given chronicity of patient's reported GERD / chest symptoms patient will be given maalox and evaluated with EKG. 08/22/18 04:47 Patient reporting improvement of GERD symptoms w/ maalox. EKG negative. 08/22/18 05:13 XR negative. Patient will f/u outpatient with ortho. Toradol given for pain relief. Patient placed in knee immobilizer. Discharging to home. *DC/Admit/Observation/Transfer Diagnosis at time of Disposition: Knee pain Qualifiers: Chronicity: acute Laterality: right Qualified Code(s): M25.561 - Pain in right knee - Discharge Dispostion Disposition: HOME - Referrals Referrals: Glenn Whitfield MD [Non Staff, Medical] - Rusty Ortega DO [Staff Physician] - Emery Yancey MD [Staff Physician] - - Patient Instructions Additional Instructions: You were evaluated today in the ER for your knee pain. We performed Xray evaluation and found no fracture. Please follow-up with orthopedics as discussed for further evaluation. Return to ER if any fever, increase in pain, or other concerning symptoms. - Post Discharge Activity
[2018-08-22] MEDS ORDERED: MAG HYDROX/AL HYDROX/SIMETH 30 ML UNIT-DOSE CUP PO ONE (03:29)
[2018-08-22] MEDS ORDERED: MAG HYDROX/AL HYDROX/SIMETH 30 ML UNIT-DOSE CUP ONE (03:32)
--- NOTE | 2018-08-22 03:36 | PDOC ---
Attending Attestation - Resident Resident Name: Edgar Rehmanorn - ED Attending Attestation I have performed the following: I have examined & evaluated the patient, The case was reviewed & discussed with the resident, I agree w/resident's findings & plan - HPI HPI: 08/22/18 03:35 Pt comes with right knee pain. She states that she always has a lot of bilateral knee pain, but she made it worse, by injuring her knee when she bumped into a pew at [employer]. States that he has a clicking feeling that radiates up her femur when she bends it. - Physicial Exam PE: 08/22/18 05:00 Agree with resident exam She has no swelling or bruising or ballotment at the knee. - Medical Decision Making 08/22/18 05:02 XR normal; pt will be sent home with a knee immobilizer. 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 Home with rehab/quad strengthening exercises.
[2018-08-22] MEDS ORDERED: KETOROLAC TROMETHAMINE 30 MG/1 ML VIAL IM ONE (04:55)
[2018-08-22] MEDS ORDERED: KETOROLAC TROMETHAMINE 30 MG/1 ML VIAL ONE (05:03)
--- NOTE | 2018-08-24 10:25 | EKG ---
Test Reason : Blood Pressure : / mmHG Vent. Rate : 059 BPM Atrial Rate : 059 BPM P-R Int : 134 ms QRS Dur : 104 ms QT Int : 434 ms P-R-T Axes : 020 058 030 degrees QTc Int : 429 ms SINUS BRADYCARDIA RSR' OR QR PATTERN IN V1 SUGGESTS RIGHT VENTRICULAR CONDUCTION DELAY BORDERLINE ECG WHEN COMPARED WITH ECG OF 17-FEB-2016 18:15, NO SIGNIFICANT CHANGE WAS FOUND Confirmed by ROSALEE LUDWIG MD ([id number]) on 08/24/2018 10:24:47 AM Referred By: Confirmed By:ROSALEE LUDWIG MD
== END 2018-08-22 05:13 | disposition home or self-care (01) ==
LOC: JER 02:54
PROC: 3E0233Z Introduction of Anti-inflammatory into Muscle, Percutaneous Approach (ICD-10-PCS; principal; 2018-08-22)
DX: M25.561 Pain in right knee (principal); K21.9 Gastro-esophageal reflux disease without esophagitis; W22.8XXA Striking against or struck by other objects, initial encounter; Y93.89 Activity, other specified; Y92.22 Religious institution as the place of occurrence of the external cause; Y99.8 Other external cause status
CPT/HCPCS: 73560-TC-RT-FY; 84703; 93005; 93010; 96372; 99282-25

== ENCOUNTER 2018-09-29 00:40 | Emergency (ER) | payer OTHER ==
[2018-09-29 01:44] VITALS: BP 129/80; PULSE 74; TEMP 98; BMI 30.9
--- NOTE | 2018-09-29 01:58 | PDOC ---
History of Present Illness - General Chief Complaint: Pain Stated Complaint: BI LATERAL KNEE PAIN Time Seen by Provider: 09/29/18 01:57 History Source: Patient - History of Present Illness Initial Comments: 09/29/18 02:32 22 year old female with history of b/l knee pain for over 7 years c/o knee pain to both knees. denies trauma / injury. patient has been seen in this ED for similar complaints. denies taking any medication for the chronic pain. patient reports that she was seen by orthopeidc doctor recommend PT/ exercise. Past History - Past Medical History Allergies/Adverse Reactions: Allergies Allergy/AdvReac Type Severity Reaction Status Date / Time No Known Allergies Allergy Verified 09/29/18 01:44 Home Medications: Ambulatory Orders Ibuprofen 600 mg PO QID PRN #20 tablet 09/29/18 Asthma: No Cancer: No Cardiac Disorders: No COPD: No Diabetes: No HTN: No Seizures: No Thyroid Disease: No - Reproductive History (#): 2 Para: 1 Therapeutic (s) & number: No Spontaneous : 0 - Immunization History Immunization Up to Date: Yes - Suicide/Smoking/Psychosocial Hx Smoking Status: Yes Smoking History: Never smoked Have you smoked in the past 12 months: No Number of Cigarettes Smoked Daily: 0 If you are a former smoker, when did you quit?: 2018 Information on smoking cessation initiated: No 'Breaking Loose' booklet given: 05/05/17 Hx Alcohol Use: No Drug/Substance Use Hx: No Substance Use Type: None Hx Substance Use Treatment: No Review of Systems - Review of Systems Able to Perform ROS?: Yes Is the patient limited [place] proficient: No Constitutional: Yes: Symptoms Reported Musculoskeletal: Yes: Other (b/l knee pain) *Physical Exam - Vital Signs Last Vital Signs Temp Pulse Resp BP Pulse Ox 98 F 74 17 129/80 99 09/29/18 00:40 09/29/18 00:40 09/29/18 00:40 09/29/18 00:40 09/29/18 00:40 - Physical Exam General Appearance: Yes: Appropriately Dressed Musculoskeletal: positive: Normal Inspection, Other (able to leg raise. no swelling noted ) Integumentary: positive: Normal Color, Dry, Warm Neurologic: positive: Fully Oriented, Alert, Normal Mood/Affect Progress Note - Progress Note Progress Note: A: b/l knee pain chronic P: Nsaids outpatient pcp follow up as soon as possible discussed with patient. *DC/Admit/Observation/Transfer Diagnosis at time of Disposition: Knee pain Qualifiers: Chronicity: acute Laterality: bilateral Qualified Code(s): M25.561 - Pain in right knee - Discharge Dispostion Disposition: HOME Condition at time of disposition: Fair - Prescriptions Prescriptions: Ibuprofen 600 mg PO QID PRN #20 tablet PRN Reason: Pain - Referrals Referrals: Jim Mclean MD [Primary Care Provider] - Jose Hutson MD [Staff Physician] - Call tomorrow - Patient Instructions Printed Discharge Instructions: DI for Knee Pain Additional Instructions: You may take ibuprofen every 6 hours as needed for pain. Apply ice to both knees. Continue light exercises. Follow up with an orthopedic doctor as soon as possible. - Post Discharge Activity Forms/Work/School Notes: Back to Work
--- NOTE | 2018-09-29 02:02 | PDOC ---
*Physical Exam - Vital Signs Last Vital Signs Temp Pulse Resp BP Pulse Ox 98 F 74 17 129/80 99 09/29/18 00:40 09/29/18 00:40 09/29/18 00:40 09/29/18 00:40 09/29/18 00:40 Medical Decision Making - Medical Decision Making 09/29/18 02:02 Patient seen by the advanced practice provider under my direct supervision. Ancillary testing reviewed as necessary. I agree with plan as outlined by the advanced practice provider. *DC/Admit/Observation/Transfer Diagnosis at time of Disposition: Knee pain Qualifiers: Chronicity: acute Laterality: bilateral Qualified Code(s): M25.561 - Pain in right knee - Discharge Dispostion Disposition: HOME Condition at time of disposition: Fair - Prescriptions Prescriptions: Ibuprofen 600 mg PO QID PRN #20 tablet PRN Reason: Pain - Referrals Referrals: Jose Hutson MD [Staff Physician] - Call tomorrow Jim Mclean MD [Primary Care Provider] - - Patient Instructions Printed Discharge Instructions: DI for Knee Pain Additional Instructions: You may take ibuprofen every 6 hours as needed for pain. Apply ice to both knees. Continue light exercises. Follow up with an orthopedic doctor as soon as possible. - Post Discharge Activity Forms/Work/School Notes: Back to Work
[2018-09-29] MEDS ORDERED: IBUPROFEN 400 MG TABLET (FP) PO ONE ×2 (02:23→03:00)
== END 2018-09-29 04:31 | disposition home or self-care (01) ==
LOC: JER 00:40
DX: M25.561 Pain in right knee (principal); M25.562 Pain in left knee; G89.29 Other chronic pain
CPT/HCPCS: 99282-25